=== PATIENT | male | born 1950 | race African-American/Black ===

== ENCOUNTER 2017-09-14 13:16 | Emergency (ER) | payer MEDICAID, MEDICARE ==
[2017-09-14 13:29] VITALS: BP 133/86
--- NOTE | 2017-09-14 13:52 | ER Document Report ---
ED General - General Chief Complaint: Breathing Difficulty Stated Complaint: BREATHING PROBLEMS Time Seen by Provider: 09/14/17 13:33 Notes: 67-year-old male PMH asthma here with complaints of shortness of breath wheezing and slight chest tightness that started earlier today. 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 EMS arrived and gave him to nebulizer treatments and patient states his symptoms immediately resolved thereafter. He reports that he was brought here by EMS after reporting he did not want to be brought. He is asking to leave. He denies any history of diabetes. TRAVEL OUTSIDE OF THE [place] IN LAST 30 DAYS: No - Related Data Allergies/Adverse Reactions: No Known Drug Allergies Allergy (Verified 09/14/17 13:35) Past Medical History - Social History Smoking Status: Current Some Day Smoker Family History: Reviewed & Not Pertinent Review of Systems - Review of Systems Notes: See history of present illness for pertinent positive review of systems; otherwise all review of systems have been reviewed and are negative Physical Exam - Vital signs Vitals: Pulse Resp BP Pulse Ox 87 20 133/86 H 95 09/14/17 13:21 09/14/17 13:21 09/14/17 13:21 09/14/17 13:21 - Notes Notes: PHYSICAL EXAMINATION: GENERAL: Well-appearing and in no acute distress. HEAD: Atraumatic, normocephalic. EYES: Pupils equal round and reactive to light, extraocular movements intact, sclera anicteric, conjunctiva are normal. ENT: nares patent, oropharynx clear without exudates. Moist mucous membranes. NECK: Normal range of motion, supple without lymphadenopathy LUNGS: CTAB and equal. No wheezes rales or rhonchi. HEART: Regular rate and rhythm without murmurs ABDOMEN: Soft, no tenderness. No facial grimacing/wincing upon palpation. No guarding, no rebound. EXTREMITIES: Normal range of motion, no pitting edema. No cyanosis. NEUROLOGICAL: Cranial nerves grossly intact. Normal sensory/motor exams. PSYCH: Normal mood, normal affect. SKIN: Warm, Dry, normal turgor, no rashes or lesions noted Course - Re-evaluation Re-evalutation: 09/14/17 13:50 MEDICAL DECISION MAKING: Concern for reactive airway disease exacerbation His physical exam is unremarkable and without wheezing Will prescribe him prednisone and instructed follow-up PCP next day or few Patient understands and agrees to the plan of care - Vital Signs Vital signs: Temp Pulse Resp BP Pulse Ox 98.7 F 89 20 122/59 L 99 09/14/17 13:25 09/14/17 13:25 09/14/17 13:25 09/14/17 13:25 09/14/17 13:25 Discharge - Discharge Clinical Impression: Wheezing Condition: Good Disposition: HOME, SELF-CARE Additional Instructions: Finish the steroids and do not skip any doses. Use your home inhaler as needed for wheezing. You were seen in the emergency department at [facility]. Please followup with your primary physician in the next few days for further management/evaluation. Please return to the emergency department for worsening of symptoms or any symptom that you deem to be concerning or life- threatening. Thank you for allowing us to be part of your care. Prescriptions: Prednisone [Deltasone 20 mg Tablet] 3 tab PO DAILY 5 Days tablet
== END 2017-09-14 13:55 | disposition home or self-care (01) ==
LOC: ER 13:16
DX: R06.2 Wheezing (principal); R06.02 Shortness of breath; R07.89 Other chest pain; F17.200 Nicotine dependence, unspecified, uncomplicated
CPT/HCPCS: 99284